=== PATIENT | female | born 1955 | race Caucasian/White ===

== ENCOUNTER 2017-03-22 12:49 | Observation (INO) | payer BC, OTHER ==
[~2017-03-22] VITALS: Ht 167.6 cm; Wt 83.0 kg
--- NOTE | ~2017-03-22 | EKG ---
[address] [place] [address] ELECTROCARDIOGRAM REPORT Name: JOSE ENRIQUE CHERRY Room #: 447-P [facility]#: [id number] Admission: 03/22/17 Attend Phys: oJse Connelly DO Discharge: Date of : 59 Report #: [id number] THIS REPORT FOR: //name// [facility] ED Test Date: 2017-03-22 Test Time: 15:19:17 Pat Name: JOSE ENRIQUE CHERRY Department: Room: [facility] Gender: F [employer]: kortney : 1955 Requested By: Shahram Ulloa Order Number: [id number] MD: eJet Yi Measurements Intervals [place] Rate: 84 P: HI: QRS: -14 QRSD: 96 T: 22 QT: 402 QTc: 476 Interpretive Statements Normal sinus rhythm Poor R wave progression Compared to ECG 08/22/2008 13:47:21 No significant change was found Electronically Signed On 03-23-2017 14:19:32 [employer]ARD MUSE[employer] by Jeet Yi [email or web address] <ELECTRONICALLY SIGNED> By: Jeet Yi MD, [facility] 03/23/17 1419 18 18 Jeet Yi MD, [facility] /EPI
[2017-03-22 13:11] VITALS: BP 145/111
[2017-03-22 14:32] LABS: HEMATOCRIT 37.2 % (37.0-47.0); HEMOGLOBIN 12.5 gm/dL (12.0-15.0); MCH 31.7 pg (26.0-34.0); MCHC 33.7 g/dL (28.0-37.0); MCV 94.1 fL (80.0-100.0); RBC 3.95 mil/uL (4.20-5.00); RDW 14.1 % (10.5-14.5)
[2017-03-22 14:40] LABS: ANION GAP 7 mmol/L (7-16); BUN 14 mg/dL (7-18); CALCIUM 9.2 mg/dL (8.5-10.1); CHLORIDE 106 mmol/L (98-107); CO2 27 mmol/L (21-32); CREATININE 0.8 mg/dL (0.6-1.0); GLUCOSE 154 mg/dL (74-106); POTASSIUM 4.3 mmol/L (3.5-5.1); SODIUM 140 mmol/L (136-145)
[2017-03-22 14:48] LABS: ALBUMIN 3.9 g/dL (3.4-5.0); ALKALINE PHOSPHATASE 57 U/L (46-116); SGOT 82 U/L (15-37); SGPT 65 U/L (30-65); TOTAL BILIRUBIN 0.3 mg/dL (<0.1-1.0); TOTAL PROTEIN 7.1 g/dL (6.4-8.2); TROPONIN-I < 0.04 ng/mL (<0.06)
[2017-03-22] MEDS ORDERED: OXYCODONE HCL 55 MG PO (16:28)
[2017-03-22 19:51] VITALS: BP 120/80
[2017-03-22] MEDS ORDERED: NOLVADEX20 MG PO (22:12)
[2017-03-22 23:59] VITALS: BP 122/85
[2017-03-23 08:05] VITALS: BP 138/91
[2017-03-23] MEDS ORDERED: CYCLOBENZAPRINE5 MG PO (08:07)
[2017-03-23 08:09] VITALS: BP 138/91
[2017-03-23] MEDS ORDERED: PERCOCET 7.5-31 EACH PO (08:09)
[2017-03-23 10:20] VITALS: BP 138/91
== END 2017-03-23 14:33 | disposition home or self-care (01) ==
LOC: ER 12:49 → EROBS 18:39 → 4S 19:39
PROVIDERS: Emergency Medicine
DX: S22.42XA Multiple fractures of ribs, left side, initial encounter for closed fracture (principal); R42 Dizziness and giddiness; W11.XXXA Fall on and from ladder, initial encounter; Y93.89 Activity, other specified; Y92.89 Other specified places as the place of occurrence of the external cause; Y99.8 Other external cause status; Z85.3 Personal history of malignant neoplasm of breast; Z23 Encounter for immunization

== ENCOUNTER → 2019-01-21 | Outpatient (CLI) | payer OTHER ==
[~2019-01-21] MED LIST: CYCLOBENZAPRINE5 MG PO; NOLVADEX20 MG PO; OXYCODONE HCL 55 MG PO; PERCOCET 7.5-31 EACH PO
== END ==
LOC: CAT 13:06
DX: Z13.6 Encounter for screening for cardiovascular disorders (principal); E78.00 Pure hypercholesterolemia, unspecified; I25.10 Atherosclerotic heart disease of native coronary artery without angina pectoris